=== PATIENT | male | born 1945 | race Caucasian/White ===

== ENCOUNTER 2022-12-17 08:44 | Day surgery (SDC) | payer BC, MEDICARE ==
[2022-12-17 09:56] VITALS: BP 174/81; TEMP 96.9
[2022-12-17] MEDS ORDERED: Amlodipine 5 MG TAB PO SCH (10:00)
== END 2022-12-17 12:25 | disposition home or self-care (01) ==
LOC: CSHRAD 08:44
PROVIDERS: ATTEND Neurological Surgery
DX: M47.812 Spondylosis without myelopathy or radiculopathy, cervical region (principal); M54.6 Pain in thoracic spine; M54.50 Low back pain, unspecified
CPT/HCPCS: 62305; 72126; 72129; 72132